=== PATIENT | female | born 1960 | race Caucasian/White ===

== ENCOUNTER → 2017-01-02 | Outpatient (CLI) | payer OTHER ==
[~2017-01-02] MED LIST: ALLEGRA180 MG PO; AZELASTINE137 MCG/0. NOSE; FLONASE 50 MCG/16 GM NOSE; MOTRIN800 MG PO; PERCOCET 5-3251 EACH PO; ZOFRAN4 MG PO
== END | disposition disaster alternative care site (69) ==
LOC: GRAD 08:44
DX: R59.0 Localized enlarged lymph nodes (principal); J31.0 Chronic rhinitis; J32.9 Chronic sinusitis, unspecified

== ENCOUNTER → 2017-02-06 | Outpatient (CLI) | payer OTHER | END | disposition disaster alternative care site (69) | LOC: GLAB 10:55 | DX: K59.00 Constipation, unspecified (principal); R53.83 Other fatigue; R63.5 Abnormal weight gain ==

== ENCOUNTER → 2017-03-13 | Outpatient (CLI) | payer OTHER ==
--- NOTE | ~2017-03-13 | ENPV ---
Vascular Lower Extremities DVT Study Procedure Demographics Patient Name FIDEL TORRES Date of Study 03/13/2017 Patient Number [id number] Gender Female Date of 1960 Age 56 Visit Number [id number] Height Accession Number [id number] Weight Room Number BSA BMI Referring Jaime Mendez Interpreting Colin Quigley MD Physician Physician Physician Ordering Physician Jaime Mendez Direct Support Specialist Wax Bleacher Stephanie Fallon T Conclusions Summary No evidence of deep vein thrombosis or superficial thrombophlebitis in the lower extremities bilaterally . Procedure Type of Study: Veins:Lower Extremities DVT Study, Venous Duplex Lower Extremity Bilateral. Indications for Study:Swelling. Appropriate Use Criteria:9 Patient Status:Routine. Study Location:Vascular Lab. Technical Quality:Adequate visualization. Velocities are measured in cm/s ; Diameters are measured in cm Right Lower Extremities DVT Study Measurements Right 2D and Doppler Measurements + + + + +------+------+ + !Location !Visualized!Compressibility!Thrombosis!Signal!Reflux!Reflux ! ! ! ! ! ! ! !(sec) ! + + + + +------+------+ + !GSV Thigh !Yes !Yes !None !Phasic!No ! ! + + + + +------+------+ + !Common !Yes !Yes !None !Phasic!No ! ! !Femoral ! ! ! ! ! ! ! + + + + +------+------+ + !Prox !Yes !Yes !None !Phasic!No ! ! !Femoral ! ! ! ! ! ! ! + + + + +------+------+ + !Mid Femoral!Yes !Yes !None !Phasic!No ! ! + + + + +------+------+ + !Dist !Yes !Yes !None !Phasic!No ! ! !Femoral ! ! ! ! ! ! ! + + + + +------+------+ + !Popliteal !Yes !Yes !None !Phasic!No ! ! + + + + +------+------+ + !Gastroc !Yes !Yes !None !Phasic!No ! ! + + + + +------+------+ + !PTV !Yes !Yes !None !Phasic!No ! ! + + + + +------+------+ + !Peroneal !Yes !Yes !None !Phasic!No ! ! + + + + +------+------+ + Left Lower Extremities DVT Study Measurements Left 2D and Doppler Measurements + + + + +------+------+ + !Location !Visualized!Compressibility!Thrombosis!Signal!Reflux!Reflux ! ! ! ! ! ! ! !(sec) ! + + + + +------+------+ + !GSV Thigh !Yes !Yes !None !Phasic!No ! ! + + + + +------+------+ + !Common !Yes !Yes !None !Phasic!No ! ! !Femoral ! ! ! ! ! ! ! + + + + +------+------+ + !Prox !Yes !Yes !None !Phasic!No ! ! !Femoral ! ! ! ! ! ! ! + + + + +------+------+ + !Mid Femoral!Yes !Yes !None !Phasic!No ! ! + + + + +------+------+ + !Dist !Yes !Yes !None !Phasic!No ! ! !Femoral ! ! ! ! ! ! ! + + + + +------+------+ + !Popliteal !Yes !Yes !None !Phasic!No ! ! + + + + +------+------+ + !Gastroc !Yes !Yes !None !Phasic!No ! ! + + + + +------+------+ + !PTV !Yes !Yes !None !Phasic!No ! ! + + + + +------+------+ + !Peroneal !Yes !Yes !None !Phasic!No ! ! + + + + +------+------+ + Impressions Left Impression Evidence of insufficiency in the left leg. 4026 milliseconds in left popliteal vein. Signature dtt: DINORA MORENO dtd: 03/13/17 [facility] Physician Self Mary
== END | disposition disaster alternative care site (69) ==
LOC: GCAR 10:00
DX: M79.606 Pain in leg, unspecified (principal); M79.89 Other specified soft tissue disorders

== ENCOUNTER 2017-05-09 11:00 | Inpatient (IN) | payer OTHER ==
[~2017-05-09] VITALS: Ht 162.6 cm; Wt 77.6 kg
--- NOTE | ~2017-05-09 | OR ---
PATIENT'S NAME: FIDEL TORRES [facility] AGE: 56 Y [address] ROOM: [place] [address] LOCATION: [facility] [place] ADMIT DATE: 05/19/2017 OR/Procedure Report DISCHARGE DATE: FAMILY PHYSICIAN: JI HICKS MD ATTENDING PHYSICIAN: Jamal Harding SURGEON: Reji Skelton MD PUMP AND BLOWER OPERATOR: Jamal Harding MD DATE OF PROCEDURE: 05/19/2017 PREOPERATIVE DIAGNOSES: 1. Stress urinary incontinence. 2. Cystocele. POSTOPERATIVE DIAGNOSES: 1. Stress urinary incontinence. 2. Cystocele. PROCEDURE PERFORMED: Mid-urethral suspension. ANESTHESIA: General. COMPLICATIONS: None. INDICATION FOR PROCEDURE: The patient is a 56-year-old female with stress urinary incontinence and cystocele. DETAILS OF PROCEDURE: After Dr. Harding completed his hysterectomy, he opened the anterior vaginal wall nicely. Two small skin incisions were made over the pubic bone bilaterally. The TVT needles were passed through the abdominal incision and out through the endopelvic fashion out the anterior vaginal wall bilaterally. Cystoscopy was performed which revealed the needles had not penetrated the bladder wall. Next, the tape was attached to the end of the needle and pulled through. Heavy curved scissors were used as spacing device. The sheath was cut, locking the tape in position. The excess was excised at the abdominal wall. The patient tolerated the procedure well. At this point, Dr. Harding continued on with his part of the operation. REJI SKELTON MD SARA/modl PATIENT'S NAME: FIDEL TORRES [facility] AGE: 56 Y [address] ROOM: [place] [address] LOCATION: [facility] [place] ADMIT DATE: 05/19/2017 OR/Procedure Report DISCHARGE DATE: FAMILY PHYSICIAN: IJ HICKS MD ATTENDING PHYSICIAN: Jamal Harding /[id number] d: 05/19/17 1243 t: 05/28/17 1158, OPERATIVE SUMMARY
--- NOTE | ~2017-05-09 | OR ---
PATIENT'S NAME: JESSIE RATLIFF [facility] AGE: 56 Y [address] ROOM: [place] [address] LOCATION: [place] ADMIT DATE: 05/19/2017 OR/Procedure Report DISCHARGE DATE: FAMILY PHYSICIAN: JI HICKS MD ATTENDING PHYSICIAN: Jamal Harding SURGEON: Jamal Harding MD TRUST MAIL CLERK: No assistants. DATE OF PROCEDURE: 05/19/2017 PREOPERATIVE DIAGNOSES: 1. Pelvic relaxation, stress urinary incontinence. 2. Uterine prolapse. 3. Cystourethrocele. 4. Rectocele. POSTOPERATIVE DIAGNOSES: 1. Pelvic relaxation, stress urinary incontinence. 2. Uterine prolapse. 3. Cystourethrocele. 4. Rectocele. PROCEDURE PERFORMED: 1. Total vaginal hysterectomy, bilateral salpingo-oophorectomy. 2. Anterior-posterior colporrhaphy. 3. Sacrospinous ligament vaginal vault suspension and placement of a tension- free transvaginal tape (by Dr. Sprague). ANESTHESIA: General endotracheal anesthesia. ESTIMATED BLOOD LOSS: 100 mL. CLINICAL INDICATION: Jessie Ratliff is a 56-year-old female with symptomatic pelvic relaxation. She has uterine prolapse, cystourethrocele, rectocele, and stress urinary incontinence. She desires definitive surgical correction. She understood the indications, procedures, risks, and alternatives. FINDINGS: Grade 2 to 3 cystourethrocele, grade 1 to 2 rectocele, and grade 2 uterine prolapse. No enterocele. The uterus, tubes, and ovaries appeared normal. TECHNIQUE OF PROCEDURE: The patient was taken to the operating room and given general endotracheal by Anesthesia with good results, placed in a lithotomy position, prepped and draped in the usual fashion. Posterior weighted speculum and anterior vaginal retractor were inserted into the vagina. Thyroid-Caterina clamp was placed about the cervix. The mucosa at the cervical PATIENT'S NAME: JESSIE RATLIFF [facility] AGE: 56 Y [address] ROOM: [place] [address] LOCATION: [facility] ADMIT DATE: 05/19/2017 OR/Procedure Report DISCHARGE DATE: FAMILY PHYSICIAN: JI HICKS MD ATTENDING PHYSICIAN: Jamal Harding vaginal reflection was injected with lidocaine with epinephrine. The mucosa was then incised in a circumferential fashion with the scalpel. Submucosa was dissected using a combination of sharp and blunt dissection. The anterior and posterior colpotomy incisions were performed and the retractor was placed through the incision. The LigaSure was used to secure the uterosacral cardinal and broad ligament pedicles bilaterally. The uterus was then delivered posteriorly. Curved Liz clamps were placed about the infundibulopelvic pedicles and released with the LigaSure. An 0 Vicryl suture was placed about the infundibulopelvic pedicle. Each tube and ovary were brought to the midline. Curved Liz clamp was placed lateral to the tube and ovary i.e. BSO was performed. The pedicles were released with the LigaSure and secured using anchored stitches of 0 Vicryl suture. Good hemostasis was obtained. The lateral vaginal angles were secured using single interrupted stitches of 0 Vicryl suture. Peritoneum was closed with a running continuous pursestring stitch of 2-0 Vicryl suture. The vaginal cuff was closed with a running continually locking stitch of 0 Vicryl suture. We then turned our attention to the anterior colporrhaphy. The vaginal mucosa was injected with lidocaine with epinephrine. Then, undermined and incised vertically in the midline with Metzenbaum scissors. Submucosa was dissected using combination of sharp and blunt dissection. At this point in time, we stepped aside. Dr. Sprague placed the transvaginal tape. Please see his dictation for specifics. Following completion of the placement of transvaginal tape, the endopelvic fascia was reapproximated using a series of horizontal mattress stitches of 0 Vicryl suture. Once the plication stitches were applied, it appeared the tension-free tape had loosened. At Dr. Sprague' discretion, we placed the 2 stitches of 2-0 silk suture to take up the slack. The vaginal mucosa was then excised with Barrios scissors and secured using a running continually locking stitch of 2-0 Vicryl suture. We then turned our attention to posterior colporrhaphy. The vaginal mucosa was again injected with lidocaine with epinephrine. The perineum was incised with a scalpel. The vaginal mucosa was undermined and then incised vertically in the midline with Metzenbaum scissors. The submucosa was dissected using a combination of sharp and blunt dissection. Each sacrospinous ligament was identified. A stitch of 0 [place] was placed through the belly of each ligament and secured to the medial aspects of the vaginal cuff. The lateral aspects of the endopelvic fascia were reapproximated using a running continuous stitch of 0 Vicryl suture. Redundant vaginal mucosa was excised with Barrios scissors and the mucosa was closed with a running continually locking stitch of 2-0 Vicryl suture. Sponge, needle, and instrument counts were correct. The Arechiga and vaginal pack were inserted. The patient tolerated the procedure well, was taken to the recovery room in good condition. PATIENT'S NAME: JESSIE RATLIFF [facility] AGE: 56 Y [address] ROOM: [address] [address] LOCATION: [facility] ADMIT DATE: 05/19/2017 OR/Procedure Report DISCHARGE DATE: FAMILY PHYSICIAN: JI HICKS MD ATTENDING PHYSICIAN: Jamal Harding MD HAYDEE ROSENBAUM/modl /[id number] d: 05/19/17 1445 t: 06/02/17 0751, OPERATIVE SUMMARY
[~2017-05-09 11:00] MED LIST changes: -AZELASTINE137 MCG/0. NOSE; -MOTRIN800 MG PO; -PERCOCET 5-3251 EACH PO; -ZOFRAN4 MG PO
[2017-05-19] MEDS ORDERED: AZELASTINE137 MCG/0. NOSE (06:37)
--- NOTE | 2017-05-19 15:24 | NUR ---
Met patient and spouse at bedside today. Introduced myself and explained my role with the CM department. Patient lives at home with spouse. Is independent with all of her ADL's. She voices no concerns or needs at discharge. Will continue to follow and offer supports as needed.
[2017-05-20 04:10] LABS: BASOPHIL % 0.1 %; HEMATOCRIT 32.8 % (33.0-46.0); HEMOGLOBIN 10.9 g/dL (10.0-15.0); IMMATURE GRANULOCYTE # 0.1 K/uL (0.0-0.3); IMMATURE GRANULOCYTE % 0.4 %; LYMPHOCYTE # 0.6 K/uL (0.8-4.0); LYMPHOCYTE % 4.7 %; MCH 31.1 pg (27.0-34.0); MCHC 33.2 gm/dL (32.0-36.5); MCV 93.4 fl (83.0-98.0); MONOCYTE # 1.1 K/uL (0.0-1.0); MONOCYTE % 7.9 %; MPV 10.3 fl (9.4-12.4); NEUTROPHIL # (ANC) 11.7 K/uL (1.8-7.8); NEUTROPHIL % 86.9 %; NRBC % 0 /100WBC (0-0.00); PLATELET COUNT 230 K/uL (150-450); RBC 3.51 M/uL (3.50-5.50); RDW-CV 12.5 % (11.9-14.6); WBC 13.5 K/uL (4.0-11.0)
[2017-05-20 04:23] LABS: ANION GAP 9.8 (10.0-19.0); CREATININE 0.8 mg/dL (0.5-1.1); POTASSIUM 4.8 mMol/L (3.7-5.1); TOTAL BILIRUBIN 0.4 mg/dL (0.0-1.5); TOTAL PROTEIN 6.1 g/dL (6.0-8.4)
[2017-05-20] MEDS ORDERED: MOTRIN800 MG PO (08:52)
[2017-05-20] MEDS ORDERED: PERCOCET 5-3251 EACH PO (08:53)
[2017-05-20] MEDS ORDERED: ZOFRAN4 MG PO (17:49)
== END 2017-05-20 18:05 | disposition disaster alternative care site (69) | DRG 743 ==
LOC: GPOC 11:00 → GMSU 05-19 06:09 → GOBS 05-19 06:09 → EDSTATUS 05-19 11:00 → GPOC 05-19 11:00 → GSIP 05-19 11:00 → GSDC 05-19 11:00 → GOBS 05-19 13:50
PROVIDERS: ADMIT Obstetrics & Gynecology
PROC: 0UTC7ZZ Resection of Cervix, Via Natural or Artificial Opening (ICD-10-PCS; principal; 2017-05-19)
PROC: 0UT9FZZ Resection of Uterus, Via Natural or Artificial Opening With Percutaneous Endoscopic Assistance (ICD-10-PCS; principal; 2017-05-19)
PROC: 0TSD4ZZ Reposition Urethra, Percutaneous Endoscopic Approach (ICD-10-PCS; principal; 2017-05-19)
DX: N81.11 Cystocele, midline (principal); K21.9 Gastro-esophageal reflux disease without esophagitis; N81.89 Other female genital prolapse; R32 Unspecified urinary incontinence
CPT/HCPCS: C1771; J0690; J0694; J1100; J1885; J2001; J2270; J2405; J2765; J3010; J7040; J7120